=== PATIENT | male | born 1995 | race Caucasian/White ===

== ENCOUNTER 2017-02-11 21:41 | Emergency (ER) | payer BC, MEDICAID ==
[2017-02-11] MEDS ORDERED: Lidocaine 2% Viscous Solution 15 ML Cup PO ONE (22:12)
[2017-02-11] MEDS ORDERED: Benzocaine 20% Topical Spray UD MUCMEM ONE (22:12)
[2017-02-11] MEDS ORDERED: Acetaminophen/HYDROcodone 325-7.5 MG Tab PO ONE (22:13)
--- NOTE | 2017-02-11 22:13 | EDM.PDOC ---
ED HPI GENERAL MEDICAL PROBLEM - General Chief Complaint: General Stated Complaint: PT HAS TOOTHACHE Time Seen by Provider: 02/11/17 22:06 - History of Present Illness INITIAL COMMENTS - FREE TEXT/NARRATIVE: HISTORY AND PHYSICAL: History of present illness: The patient is a healthy 21-year-old male who underwent a dental cleaning locally with a dentist about 2 weeks ago and has had pain in multiple areas of his mouth the most noteworthy the right upper molar area since that cleaning. He said he had x-rays and he has to get his wisdom teeth removed as well as one other molar on the upper right but the dentist said that the dental cleaning did not aggravate anything. He has been using [id number] medications without relief and is here for discomfort. He has no sore throat fevers chills or facial swelling. Review of systems: As per history of present illness and below otherwise all systems reviewed and negative. Past medical history: As per history of present illness and as reviewed below otherwise noncontributory. Surgical history: As per history of present illness and as reviewed below otherwise noncontributory. Social history: No reported history of drug or alcohol abuse. Family history: As per history of present illness and as reviewed below otherwise noncontributory. Physical exam: HEENT: Atraumatic, normocephalic, pupils reactive, negative for conjunctival pallor or scleral icterus, mucous membranes moist, throat clear, neck supple, nontender, trachea midline. There are several areas of dental disease but there is nothing visible in the right upper molar and premolar area but there is tenderness to palpation of the gum line. There is no facial swelling. Lungs: Clear to auscultation, breath sounds equal bilaterally, chest nontender. Heart: S1S2, regular rate and rhythm no overt murmurs Abdomen: Soft, nondistended, nontender. Negative for costovertebral tenderness. Genitourinary: Deferred. Rectal: Deferred. Extremities: Atraumatic, negative for cords or calf pain. Neurovascular unremarkable. Neuro: Awake, alert, oriented. Cranial nerves II through XII unremarkable. Cerebellum unremarkable. Motor and sensory unremarkable throughout. Exam nonfocal. Diagnostics: [] Therapeutics: Dental balls [place] Impression: Dental pain Definitive disposition and diagnosis as appropriate pending reevaluation and review of above. Treatments [employer]: Reports: NSAIDS dental pain Pain Score (Numeric/FACES): 10 - Related Data Allergies Allergy/AdvReac Type Severity Reaction Status Date / Time No Known Allergies Allergy Verified 02/11/17 22:00 Home Meds: Home Meds . [No Known Home Meds] 02/11/17 [History] Past Medical History HEENT History: Reports: None Cardiovascular History: Reports: None Respiratory History: Reports: None Gastrointestinal History: Reports: None Genitourinary History: Reports: None Musculoskeletal History: Reports: None Neurological History: Reports: None Psychiatric History: Reports: None Endocrine/Metabolic History: Reports: None Hematologic History: Reports: None Immunologic History: Reports: None Oncologic (Cancer) History: Reports: None Dermatologic History: Reports: None - Infectious Disease History Infectious Disease History: Reports: None - Past Surgical History Head Surgeries/Procedures: Reports: None Social & Family History - Family History Family Medical History: Noncontributory - Tobacco Use Smoking Status *Q: Never Smoker - Caffeine Use Caffeine Use: Reports: Soda - Recreational Drug Use Recreational Drug Use: No ED ROS GENERAL - Review of Systems Review Of Systems: ROS reveals no pertinent complaints other than HPI. ED EXAM, GENERAL - Physical Exam Exam: See Below (see dictation) Course - Vital Signs Last Recorded V/S: Last Vital Signs Temp 36.6 C 02/11/17 22:01 Pulse 65 02/11/17 22:01 Resp 18 02/11/17 22:01 BP 143/80 H 02/11/17 22:01 Pulse Ox 98 02/11/17 22:01 - Orders/Labs/Meds Orders: Active Orders 24 hr Category Date Time Status Acetaminophen/HYDROcodone [[place] 325-7.5 MG] Med 02/11/17 22:13 Once 1 tab PO ONETIME ONE Meds: Medications Discontinued Medications Generic Name Dose Route Start Last Admin Trade Name Freq PRN Reason Stop Dose Admin Benzocaine 2 each 02/11/17 22:12 Hurricaine One 20% MUCMEM 02/11/17 22:13 ONETIME ONE Lidocaine HCl 15 ml 02/11/17 22:12 Xylocaine 2% Viscous PO 02/11/17 22:13 ONETIME ONE Departure - Departure Time of Disposition: 22:16 Disposition: Home, Self-Care 01 Condition: Good Clinical Impression: Pain, dental - Discharge Information Referrals: PCP,None [Primary Care Provider] - Forms: ED Department Discharge Additional Instructions: The following information is given to patients seen in the emergency department who are being discharged to home. This information is to outline your options for follow-up care. We provide all patients seen in our emergency department with a follow-up referral. The need for follow-up, as well as the timing and circumstances, are variable depending upon the specifics of your emergency department visit. If you don't have a primary care physician on staff, we will provide you with a referral. We always advise you to contact your personal physician following an emergency department visit to inform them of the circumstance of the visit and for follow-up with them and/or the need for any referrals to a consulting specialist. The emergency department will also refer you to a specialist when appropriate. This referral assures that you have the opportunity for followup care with a specialist. All of these measure are taken in an effort to provide you with optimal care, which includes your followup. Under all circumstances we always encourage you to contact your private physician who remains a resource for coordinating your care. When calling for followup care, please make the office aware that this follow-up is from your recent emergency room visit. If for any reason you are refused follow-up, please contact the [facility] emergency department at and ask to speak to the emergency department charge nurse. [facility] Primary care- Internal Medicine and Family [address] [id number] Please use amoxicillin you have been prescribed via [facility] and use dental balls as shown in needed. Please contact her dentist for further care and evaluation return here as needed and as discussed. - My Orders Last 24 Hours: My Active Orders 02/11/17 22:13 Acetaminophen/HYDROcodone [[place] 325-7.5 MG] 1 tab PO ONETIME ONE - Assessment/Plan Last 24 Hours: My Active Orders 02/11/17 22:13 Acetaminophen/HYDROcodone [[place] 325-7.5 MG] 1 tab PO ONETIME ONE
[2017-02-12 01:29] VITALS: BP 127/80
== END 2017-02-11 23:42 | disposition home or self-care (01) ==
LOC: MW.ED 21:41
DX: K08.89 Other specified disorders of teeth and supporting structures (principal)
CPT/HCPCS: 99282; A9270; 99283